=== PATIENT | female | born 1960 | race Caucasian/White ===

== ENCOUNTER → 2024-04-05 | Day surgery (SDC) | payer MEDICAID ==
[2024-04-03 13:20] LABS: Basophils # (auto) 0 10 ^3/uL (0-0.2); Basophils % (auto) 0.6 % (0.0-2.0); Eosinophils # (auto) 0.2 10 ^3/uL (0-0.8); Hematocrit 39.1 % (36.0-46.0); Hemoglobin 13.2 g/dL (12.2-16.2); Lymphocytes # (auto) 2.4 10 ^3/uL (0.4-5.4); Mean Corpuscular Hemoglobin 30.1 pg (28.0-32.0); Mean Corpuscular Hgb Conc. 33.8 g/dL (32.0-36.0); Mean Corpuscular Volume 89.1 fL (80.0-100.0); Monocytes # (auto) 0.5 10 ^3/uL (0-1.3); Monocytes % (auto) 6.6 % (0.0-12.0); Neutrophils # (auto) 4.8 10 ^3/uL (1.6-8.6); Neutrophils % (auto) 60.8 % (37.0-80.0); Platelet Count (auto) 197 10^3/uL (140-450); Red Blood Cells 4.38 10^6/uL (4.0-5.20); Red Cell Distribution Width 14.9 % (11.8-14.3); White Blood Cell 7.9 10^3/uL (4.4-10.8)
[2024-04-03 13:29] LABS: Urine Bacteria FEW /hpf (None Seen); Urine Blood TRACE /uL (Negative); Urine Clarity Clear (Clear); Urine Color Light-Yellow (Yellow); Urine Protein, UAD Negative (Negative); Urine Specific Gravity 1.013 (1.001-1.035); Urine Urobilinogen Normal (Negative); Urine WBC 2 /hpf (0 - 5); Urine pH 5.5 (5.0-9.0)
[2024-04-03 13:38] LABS: INR 1.05 (0.9-1.15); Prothrombin Time 11.1 sec (9.3-11.8)
[2024-04-03 13:39] LABS: Alanine Aminotransferase 15 U/L (7-40); Albumin 4.5 g/dL (3.2-4.8); Alkaline Phosphatase 57 U/L (46-116); Anion Gap 5 (5-15); Aspartate Aminotransferase 12 U/L (13-40); BUN/Creatinine Ratio 14.9 (10.0-20.0); Bilirubin, Total 0.6 mg/dL (0.2-1.0); Blood Urea Nitrogen 13 mg/dL (9-23); Carbon Dioxide 26 mmol/L (20-30); Chloride 108 mmol/L (98-107); Glucose 91 mg/dL (74-106); Potassium 3.9 mmol/L (3.5-5.1); Sodium 139 mmol/L (136-145); Total Protein 6.8 g/dL (5.7-8.2)
[~2024-04-05] VITALS: Ht 170.2 cm; Wt 71.2 kg
[~2024-04-05] MED LIST: ASPI1TAB20 PO; DexAMETHasone SOD PHOS 10MG/1ML VIAL INJ ONE; HYDR25TA5 PO; IBUP-1456 PO; KETAMINE 50mg/ML 10ml Vial 10 ML ONE; LISI2.5T47 PO; MEPERIDINE HCL (25 MG/ML) 1ML VIAL ONE; MIDAZOLAM HCL 2MG/2ML 2ml VIAL (1mg/ml) ONE; MORP15TA PO; ONDANSETRON HCL 4 MG/2 ML VIAL IV ONE; PERCOT PO; PROPOFOL 10 MG/ML 20 ML IV ONE; fentaNYL CITRATE 100 MCG/2 ML VL ONE
[2024-04-05 08:40] VITALS: TEMP 98.2; O2SAT 100
[2024-04-05 09:35] VITALS: BP 157/78; PULSE 70; RESP 12; O2SAT 99
== END | disposition home or self-care (01) ==
LOC: GI 06:41
PROVIDERS: ATTEND Internal Medicine Gastroenterology
DX: R19.5 Other fecal abnormalities (principal); K57.30 Diverticulosis of large intestine without perforation or abscess without bleeding; I10 Essential (primary) hypertension; G89.29 Other chronic pain; J45.909 Unspecified asthma, uncomplicated; F31.9 Bipolar disorder, unspecified; F41.9 Anxiety disorder, unspecified; F20.0 Paranoid schizophrenia; Z79.82 Long term (current) use of aspirin; Z79.899 Other long term (current) drug therapy; Z90.710 Acquired absence of both cervix and uterus; Z86.73 Personal history of transient ischemic attack (TIA), and cerebral infarction without residual deficits; Z86.19 Personal history of other infectious and parasitic diseases; Z98.51 Tubal ligation status; Z98.890 Other specified postprocedural states; Z87.891 Personal history of nicotine dependence; Z88.0 Allergy status to penicillin; Z88.8 Allergy status to other drugs, medicaments and biological substances; Z91.040 Latex allergy status
CPT/HCPCS: 36415; 45378; 80053; 81001; 85025; 85610; 85730; J1100; J2175; J2250; J2405; J2704; J3010; J7030

== ENCOUNTER 2025-01-29 06:05 | Day surgery (SDC) | payer MEDICAID ==
[~2025-01-29] VITALS: Ht 154.9 cm; Wt 74.8 kg
[~2025-01-29 06:05] MED LIST changes: +ASPI1TAB19 PO; -ASPI1TAB20 PO; +ATOR-507 PO; +CETI-120 PO; +CHLO25TA2 PO; +CIPR500T4 PO; +CLON0.1T PO; +DOCU-94 PO; +DULO1CAP5 PO; -DexAMETHasone SOD PHOS 10MG/1ML VIAL INJ ONE; +GABA-1250 PO; +HYDR-4795 PO; -HYDR25TA5 PO; +HYDRX10T PO; -IBUP-1456 PO; -KETAMINE 50mg/ML 10ml Vial 10 ML ONE; +LISI-275 PO; +LISI10TA34 PO; -LISI2.5T47 PO; +MELO15TA29 PO; -MEPERIDINE HCL (25 MG/ML) 1ML VIAL ONE; -MIDAZOLAM HCL 2MG/2ML 2ml VIAL (1mg/ml) ONE; -ONDANSETRON HCL 4 MG/2 ML VIAL IV ONE; -PERCOT PO; +POTA-36 PO; -PROPOFOL 10 MG/ML 20 ML IV ONE; +QUET1TAB11 PO; -fentaNYL CITRATE 100 MCG/2 ML VL ONE
[2025-01-29] MEDS: IODIXANOL 320MG/ML 100ML BTL IV ONE (07:26)
[2025-01-29] MEDS: HEPARIN SODIUM (PORCINE) 5000 UNITS/ML 1ML VIAL ONE (07:41)
[2025-01-29] MEDS: ANGIOMAX 250 MG VIAL IV ONE (07:41)
[2025-01-29] MEDS: fentaNYL CITRATE 100 MCG/2 ML VL ONE (07:42)
[2025-01-29] MEDS: LIDOCAINE 2%HCL (LOCAL ANESTH.) INJ 20ML MDV ONE (07:42)
[2025-01-29] MEDS: MIDAZOLAM HCL 2MG/2ML 2ml VIAL (1mg/ml) ONE (07:42)
[2025-01-29] MEDS: VERAPAMIL 2.5MG/ML INJ 2ML VIAL IV ONE (07:42)
[2025-01-29] MEDS: SODIUM CHL 0.9% 0 ML ONE (07:43)
[2025-01-29 08:20] VITALS: BP 111/89; PULSE 80; RESP 15; TEMP 98; O2SAT 97
--- NOTE | 2025-01-29 08:21 | DVHOP2 ---
Operative Report Procedures performed: Left heart catheterization and bilateral coronary angiogram Moderate sedation Diagnosis: No angiographic evidence for epicardial coronary artery disease (normal coronaries) LVEF of 60% with normal LVEDP Cardiac suggestion for management: Optimized medical therapy Lifestyle and risk factor modifications Findings: LVEF: 60% LVEDP: 11 mm Hg There was no transaortic valve pressure gradient Left main: Left main was coming off the left sinus of Valsalva. There was no angiographic evidence of disease in left main. LCX: LCX was coming off the left main. OM1 was a small vessel. OM2, OM3 and OM4 were large-sized vessels. LCX throughout its course and branches did not reveal any angiographic evidence of disease. LAD: LAD was coming off the left main. First diagonal was a medium-sized vessel. Second diagonal is a small-caliber vessel. LAD itself became a small- caliber vessel in its mid to distal section. LAD throughout its course and branches did not reveal any angiographic evidence of disease. RCA: RCA was coming off the right sinus of Valsalva. It was a dominant vessel and provided RPDA. RCA throughout its course and branches did not reveal any angiographic evidence of disease. Presentation: Patient is a 64-year-old female who presented to the office with occasional chest pain. She is to go for back surgery. Past medical history includes COPD, hypertension, old history of CVA (2011), asthma, DJD, anxiety disorder, neuropathy, degenerative disc disease (lumbar spine), history of appendectomy and cholecystectomy. Nuclear stress test of October 2024 was abnormal. Echocardiogram of November 2024 revealed preserved left ventricular systolic function. Patient was sent for cardiac catheterization. Procedure in detail: After obtaining informed consent, the patient was brought to the laborer pipelines. She was prepped and draped in sterile fashion. 1 mg of Versed and 50 mcg of fentanyl were used for moderate sedation. Right radial artery was used for access site. Using a modified Seldinger technique, the right radial artery was accessed and a 6 [place] slender sheath was inserted into it. 2.5 mg of verapamil and 100 mcg of nitroglycerin were given as a cocktail into the right radial sheath. 3800 units of heparin was given peripherally. A 5 [place] tiger 4 diagnostic catheter was used to perform left heart catheterization (obtaining pressures and performing left ventriculography) and bilateral coronary angiography. There was no indication for any transcatheter revascularization. There was no dissection/hematoma/perforation. Patient tolerated the procedure with no complication. Right radial artery access site was managed by deploying a TR band. Fluoroscopy time: 1.4 minutes contrast: 30 mL of DONY Franks MD Jan 29, 2025 08:21
[2025-01-29 08:35] VITALS: BP 103/54; PULSE 67; RESP 15; O2SAT 95
[2025-01-29 08:50] VITALS: BP 114/66; PULSE 81; RESP 15; O2SAT 95
[2025-01-29 09:05] VITALS: BP 112/67; PULSE 67; RESP 15; O2SAT 95
[2025-01-29 09:30] VITALS: BP 107/63; PULSE 67; RESP 17; O2SAT 93
[2025-01-29 10:00] VITALS: BP 116/60; PULSE 72; RESP 16; O2SAT 93
== END 2025-01-29 10:35 | disposition home or self-care (01) ==
LOC: CATH 06:05
PROVIDERS: ATTEND Internal Medicine Cardiovascular Disease
DX: R07.89 Other chest pain (principal); R06.02 Shortness of breath; I25.10 Atherosclerotic heart disease of native coronary artery without angina pectoris; J44.89 Other specified chronic obstructive pulmonary disease; I10 Essential (primary) hypertension; F41.9 Anxiety disorder, unspecified; Z86.73 Personal history of transient ischemic attack (TIA), and cerebral infarction without residual deficits; Z90.49 Acquired absence of other specified parts of digestive tract; Z88.0 Allergy status to penicillin; Z91.040 Latex allergy status; Z91.048 Other nonmedicinal substance allergy status; Z79.82 Long term (current) use of aspirin; Z79.899 Other long term (current) drug therapy; Z87.891 Personal history of nicotine dependence
CPT/HCPCS: 93458; C1894; J1644; J2250; J3010; Q9967; 99152